=== PATIENT | female | born 1985 | race Caucasian/White ===

== ENCOUNTER 2017-06-06 13:15 | Emergency (ER) | payer BC, OTHER ==
[~2017-06-06] VITALS: Ht 182.9 cm; Wt 91.0 kg
[~2017-06-06 13:15] MED LIST: CITA20TA9 PO; METH36TA4 PO
[2017-06-06 13:26] VITALS: BP 113/78
[2017-06-06] MEDS ORDERED: KETOROLAC 30 MG/1 ML IM ONE (14:30)
[2017-06-06] MEDS ORDERED: KETOROLAC 30 MG/1 ML ONE (15:04)
== END 2017-06-06 15:12 | disposition home or self-care (01) ==
LOC: ED 15:00
DX: S16.1XXA Strain of muscle, fascia and tendon at neck level, initial encounter (principal); Z88.1 Allergy status to other antibiotic agents; Z90.49 Acquired absence of other specified parts of digestive tract; Z88.6 Allergy status to analgesic agent; F32.9 Major depressive disorder, single episode, unspecified; F41.9 Anxiety disorder, unspecified; V43.52XA Car driver injured in collision with other type car in traffic accident, initial encounter; Y93.89 Activity, other specified; Y99.8 Other external cause status; Y92.488 Other paved roadways as the place of occurrence of the external cause
CPT/HCPCS: 72072; 72125; 96372; 99284; J1885

== ENCOUNTER 2018-04-29 20:01 | Emergency (ER) | payer BC, OTHER ==
[~2018-04-29] VITALS: Ht 182.9 cm; Wt 98.6 kg
[2018-04-29 20:15] VITALS: BP 109/75
== END 2018-04-29 22:30 | disposition home or self-care (01) ==
LOC: ED 22:21
DX: J06.9 Acute upper respiratory infection, unspecified (principal)
CPT/HCPCS: 71046; 87081; 87880; 93005; 99284

== ENCOUNTER 2018-06-26 21:37 | Emergency (ER) | payer MEDICAID, OTHER ==
[~2018-06-26] VITALS: Ht 182.9 cm; Wt 100.7 kg
[2018-06-26 22:08] LABS: MICROSCOPIC AUTO
--- NOTE | 2018-06-26 22:29 | NUR ---
pt to room from lobby
[2018-06-26] MEDS ORDERED: KETOROLAC 30 MG/1 ML ONE (23:19)
[2018-06-26] MEDS ORDERED: ONDANSETRON 2MG/ML, 2ML ONE (23:19)
[2018-06-26 23:20] VITALS: BP 94/62
[2018-06-26 23:21] LABS: HCG UR SG 1.014 (1.003-1.030)
[2018-06-26 23:25] LABS: BASOPHILS # (AUTO) 0.04 x10^3/uL (0-0.1); BASOPHILS % (AUTO) 1 % (0-1); EOSINOPHILS # (AUTO) 0.47 x10^3/uL (0-0.4); EOSINOPHILS % (AUTO) 7 % (1-7); LYMPHOCYTES # (AUTO) 2.22 x10^3/uL (1-3.4); LYMPHOCYTES % (AUTO) 34 % (22-44); MD NO; MEAN CORPUSCULAR HEMOGLOBIN 30.3 pg (27.0-34.8); MEAN CORPUSCULAR HGB CONC 33.7 g/dL (32.4-35.8); MEAN CORPUSCULAR VOLUME 89.9 fL (80-100); MEAN PLATELET VOLUME 8.9 fL (7.4-10.4); MONOCYTES # (AUTO) 0.34 x10^3/uL (0.2-0.8); MONOCYTES % (AUTO) 5 % (2-9); NEUTROPHILS # (AUTO) 3.41 x10^3/uL (1.8-6.8); NEUTROPHILS % (AUTO) 53 % (42-75); PLATELET COUNT 234 x10^3/uL (130-400); RED BLOOD COUNT 4.43 x10^6/uL (3.82-5.3); RED CELL DISTRIBUTION WIDTH 14.1 % (9.6-15.2)
[2018-06-26] MEDS ORDERED: KETOROLAC 30 MG/1 ML IVPush ONE (23:30)
[2018-06-26] MEDS ORDERED: ONDANSETRON 2MG/ML, 2ML IVPush ONE (23:30)
[2018-06-26 23:36] LABS: ALANINE AMINOTRANSFERASE 25 U/L (12-78); ALBUMIN 3.6 g/dL (3.4-5.0); ANION GAP 4 mmol/L (5-15); CALCIUM 8.5 mg/dL (8.5-10.1); CHLORIDE 110 mmol/L (98-107); CREATININE 0.89 mg/dL (0.55-1.02)
[2018-06-26 23:38] LABS: ALKALINE PHOSPHATASE 77 U/L (45-117); BILIRUBIN,TOTAL 0.3 mg/dL (0.2-1.0); TOTAL PROTEIN 6.7 g/dL (6.4-8.2)
--- NOTE | 2018-06-26 23:57 | NUR ---
Pt reports decreased pain
--- NOTE | 2018-06-27 00:19 | NUR ---
Pt verbalized understanding of DC instructions and importance of returning to ed for any worsening/concerning s/s
== END 2018-06-27 00:21 | disposition home or self-care (01) ==
LOC: ED 23:30
DX: R10.9 Unspecified abdominal pain (principal); F32.9 Major depressive disorder, single episode, unspecified; Z90.49 Acquired absence of other specified parts of digestive tract; Z90.89 Acquired absence of other organs
CPT/HCPCS: 36415; 76770; 80053; 81001; 81025; 83690; 85025; 96374; 96375; 99284; J1885; J2405